=== PATIENT | female | born 1995 | race Caucasian/White ===

== ENCOUNTER 2016-08-16 16:51 | Emergency (ER) | payer OTHER, MEDICAID ==
[~2016-08-16] VITALS: Ht 165.1 cm; Wt 85.7 kg
[~2016-08-16 16:51] MED LIST: PREN-96 PO
[2016-08-16] MEDS ORDERED: IBUPROFEN 600 MG TAB PO ONE ×2 (17:05→17:15)
[2016-08-16] MEDS ORDERED: ACETAMINOPHEN 325 MG TAB PO ONE ×3 (17:05→17:45)
[2016-08-16 17:28] VITALS: BP 148/94
[2016-08-16] MEDS ORDERED: cefTRIAXone SOD 1,000 MG VL IM ONE (17:45)
== END 2016-08-16 17:48 | disposition home or self-care (01) ==
LOC: ER 17:03
DX: O90.89 Other complications of the puerperium, not elsewhere classified (principal); J02.9 Acute pharyngitis, unspecified
CPT/HCPCS: 96372; 99284; J0696

== ENCOUNTER 2017-02-26 12:37 | Emergency (ER) | payer MEDICAID, OTHER ==
[~2017-02-26] VITALS: Ht 165.1 cm; Wt 90.7 kg
[2017-02-26 13:08] VITALS: BP 110/81
== END 2017-02-26 13:33 | disposition home or self-care (01) ==
LOC: ER 12:52
DX: N76.4 Abscess of vulva (principal); M19.90 Unspecified osteoarthritis, unspecified site